=== PATIENT | female | born 1975 | race Hispanic/Latino ===

== ENCOUNTER 2018-11-24 05:46 | Day surgery (SDC) | payer MEDICAID ==
--- NOTE | 2018-11-23 17:20 | History and Physical Report ---
History of Present Illness Date of examination: 11/23/18 Chief complaint: dysfunctional uterine bleeding History of present illness: Pt i s a 43 year old female presents for surgical management of dysfunctional uterine bleeding. Pt reported palpitations this past weekend after drinking an alcoholic beverage. She denies feeling any palpitations today. Past History Past Medical History: other (Crohn's Disease; Arthritis (caused by Crohn's Disease) ) Past Surgical History: breast surgery (breast augmentation ), SECURITY SCREENER/uterine surgery (LEEP ), other (two abdominoplasties, nine surgeries to repair face after dog bite ) SECURITY SCREENER History: abnormal PAP smear Family/Genetic History: diabetes, hypertension Social history: no significant social history - Obstetrical History : 4 Para: 4 Hx # Term Pregnancies: 2 Number of Pregnancies: 2 Spontaneous Abortions: 0 Induced : 0 Number of Living Children: 2 Medications and Allergies Allergies Allergy/AdvReac Type Severity Reaction Status Date / Time No Known Allergies Allergy Unverified 11/23/18 10:02 Home Medications Medication Instructions Recorded Confirmed Last Taken Type Folic Acid [Folvite] 1 tab PO DAILY 11/23/18 11/23/18 Unknown History Montelukast [Singulair] 10 mg PO QPM 11/23/18 11/23/18 Unknown History Vit-Fe Fumar-FA [ 1 tab PO QDAY 11/23/18 11/23/18 Unknown History Vitamin] sulfaSALAzine [Azulfidine] 1,000 mg PO BID 11/23/18 11/23/18 Unknown History Active Meds: Active Medications Lactated Ringer's (Lactated Ringers) 1,000 mls @ 75 mls/hr IV DIRECT HAILEY Cefazolin Sodium (Ancef/Sterile Water 2 Gm/20 Ml) 2 gm in 20 mls @ 80 mls/hr IV PREOP NR; Protocol Review of Systems All systems: negative - Physical Exam Breasts: Positive: deferred Cardiovascular: Regular rate Lungs: Positive: Clear to auscultation Abdomen: Positive: soft, organomegaly Extremities: Positive: normal Results All other labs normal. Assessment and Plan A: Dysfunctional Uterine Bleeding Crohn's Disease Palpitations P: EKG Proceed with hysteroscopy, Myosure endometrial sampling, Novasure endometrial ablation and other indicated procedures.
[~2018-11-24 05:46] MED LIST: ANCEF/STERILE WATER 2 GM/20 ML 2 GM/20 ML SYRINGE IV NR; LACTATED RINGERS 1,000 ML IV SCH
[2018-11-24] MEDS ORDERED: NACL BACTERIOSTATIC INFILTRATI ONE (06:18)
[2018-11-24 06:56] LABS: Hematocrit 36.3 % (30.3-42.9); Hemoglobin 12.2 gm/dl (10.1-14.3); Mean Corpuscular HGB Conc 34 % (30-34); Mean Corpuscular Volume 98 fl (79-97); Platelet Count 214 K/mm3 (140-440); Red Blood Count 3.72 M/mm3 (3.65-5.03); Red Cell Distribution Width 13.2 % (13.2-15.2)
[2018-11-24] MEDS ORDERED: VERSED IV NR (07:16)
[2018-11-24] MEDS ORDERED: PEPCID IV NR (07:17)
[2018-11-24] MEDS ORDERED: SUBLIMAZE IV PRN (07:23)
[2018-11-24] MEDS ORDERED: ZOFRAN IV PRN (07:23)
[2018-11-24] MEDS ORDERED: PEPCID IV ONE (07:25)
[2018-11-24] MEDS ORDERED: SILVER NITRATE TP ONE (07:26)
[2018-11-24] MEDS ORDERED: DILAUDID IV PRN (07:32)
--- NOTE | 2018-11-24 07:32 | Anesthesia Day of Surgery ---
Anesthesia Day of Surgery - Day of Surgery Patient Examined: Yes Patient H&P Reviewed: Yes Patient is NPO: Yes
--- NOTE | 2018-11-24 07:32 | Anesthesia Consultation ---
Anesthesia Consult and Med Hx Date of service: 11/24/18 - Airway Anesthetic Teeth Evaluation: Good ROM Head & Neck: Adequate Mental/Hyoid Distance: Adequate Mallampati Class: Class II Intubation Access Assessment: Probably Good - Pulmonary Exam CTA: Yes - Cardiac Exam Cardiac Exam: RRR - Pre-Operative Health Status ASA Pre-Surgery Classification: ASA2 Proposed Anesthetic Plan: General - Pulmonary Hx Smoking: No Hx Respiratory Symptoms: No Hx Sleep Apnea: No - Cardiovascular System Hx Hypertension: No Hx Heart Attack/AMI: No Hx Angina: No (recent episode chest tightness; normal EKG.) Hx Percutaneous Transluminal Coronary Angioplasty (PTCA): No Hx Cardia Arrhythmia: No - Central Nervous System Hx Seizures: No CVA: No Hx Psychiatric Problems: No - Gastrointestinal Hx Gastroesophageal Reflux Disease: No (Hx Crohn's disease; no steroids/immunosuppresants >6months) - Endocrine Hx Renal Disease: No Hx Liver Disease: No Hx Insulin Dependent Diabetes: No Hx Non-Insulin Dependent Diabetes: No Hx Thyroid Disease: No - Other Systems Hx Alcohol Use: Yes (Occas) Hx Cancer: No Hx Obesity: No - Additional Comments Anesthesia Medical History Comments: No hx anesthetic complications.
[2018-11-24] MEDS ORDERED: SUBLIMAZE ONE (07:48)
[2018-11-24] MEDS ORDERED: ZOFRAN ONE (07:48)
[2018-11-24] MEDS ORDERED: DIPRIVAN 10 MG/ML IV ONE (07:48)
[2018-11-24] MEDS ORDERED: DECADRON ONE (07:48)
[2018-11-24] MEDS ORDERED: XYLOCAINE MPF 2% ONE (07:48)
[2018-11-24] MEDS ORDERED: TORADOL ONE (07:48)
[2018-11-24] MEDS ORDERED: NACL 0.9% IR ONE (08:00)
--- NOTE | 2018-11-24 08:24 | Operative Report ---
Operative Report Operative Report: Date of procedure: November 24, 2018 Preoperative diagnosis: 1) Dysfunctional Uterine Bleeding Postoperative diagnosis: Same Procedure: 1)Hysteroscopy 2)Myosure Endometrial Sampling 3)NovaSure Endometrial Ablation Surgeon: Chely Navarrete M.D. Findings: 1) Small anteverted mobile uterus that sounded to 9.5 cm 2) Proliferative endometrium on hysteroscopy Anesthesia: General with LMA Estimated blood loss: Minimal Specimens: endometrial curettings to pathology Drains: None Complications: None Disposition: Stable to PACU Indications for procedure: The patient is 43 year old female who presents for surgical management of dysfunctional uterine bleeding. Operation in detail: After the risks, benefits, alternatives and complications of the procedure were explained to the patient, she gave informed consent for the procedure. She was subsequently taken to the operating room and placed in the dorsal supine position with her IV noted to be running well. SCDs noted to be in place and functioning. General anesthesia was then induced without difficulty. The patient was in placed in dorsal lithotomy position and prepped and draped in normal sterile fashion. A timeout was performed. An exam under anesthesia was performed yielding a mobile anteverted uterus. The bladder was then catheterized and drained of urine. An open sided speculum was then placed into the vagina for adequate visualization of the cervix. The anterior lip of the cervix was then grasped with a tenaculum for traction. The cavity length was then noted to be 4.5 cm. At this time a hysteroscope was introduced to visualize the endometrial cavity which revealed proliferative endometrium. The Myosure device was used to obtain a targeted endometrial sample and the curettings were sent to pathology. Attention was then turned to the endometrial ablation. At this time Rizzo dilators were used to sequentially dilate the cervix to a #19. Next the disposable NovaSure device was connected to the RF controller. The NovaSure disposable device was deployed to the locked position and noted to fully extend. The device was then placed in the unlocked position. The disposable device was then inserted into the uterine cavity with traction on the tenaculum. The device was then seated per protocol. After moving the device back 0.5 cm, the device was moved superiorly and inferiorly and rotated clockwise and counterclockwise to 45. The cavity width at this time was noted to be 4.5 cm. The cervical collar was then advanced to the cervix. The cavity assessment was then initiated and passed. The ablation procedure was then initiated and the ablation time was 1 minute 32 seconds. The cervical collar was moved away from the cervix, the device was moved to the unlocked position, and the disposable NovaSure device was removed from the uterine cavity. At this time, the single-tooth tenaculum was removed from the cervix. The tenaculum puncture sites were noted to be hemostatic. All instruments were removed from the vagina atraumatically and the procedure was ended. The patient was placed into the dorsal supine position and extubated without difficulty. She was subsequently taken to the PACU in stable condition. She tolerated the procedure well. All counts were correct 2.
--- NOTE | 2018-11-24 08:29 | Short Stay Summary ---
Short Stay Documentation Date of service: 11/24/18 - History H&P: dictated Social history: no significant social history - Allergies and Medications Current Medications: Allergies No Known Allergies Allergy (Unverified 11/23/18 10:02) Home Medications Medication Instructions Recorded Confirmed Last Taken Type Folic Acid [Folvite] 1 tab PO DAILY 11/23/18 11/23/18 11/23/18 History Montelukast [Singulair] 10 mg PO QPM 11/23/18 11/23/18 11/23/18 History Vit-Fe Fumar-FA [ 1 tab PO QDAY 11/23/18 11/23/18 11/23/18 History Vitamin] sulfaSALAzine [Azulfidine] 1,000 mg PO BID 11/23/18 11/23/18 11/23/18 History Active Medications Famotidine (Pepcid) 20 mg IV PREOP NR Stop: 11/24/18 20:00 Last Admin: 11/24/18 07:20 Dose: 20 mg Documented by: Fentanyl (Sublimaze) 50 mcg IV Q5MIN PRN PRN Reason: Pain , Severe (7-10) Stop: 11/24/18 20:00 Hydromorphone HCl (Dilaudid) 0.5 mg IV Q10MIN PRN PRN Reason: Pain , Severe (7-10) Stop: 11/24/18 20:00 Lactated Ringer's (Lactated Ringers) 1,000 mls @ 75 mls/hr IV DIRECT HAILEY Last Admin: 11/24/18 06:40 Dose: 75 mls/hr Documented by: Cefazolin Sodium (Ancef/Sterile Water 2 Gm/20 Ml) 2 gm in 20 mls @ 80 mls/hr IV PREOP NR; Protocol Stop: 11/24/22 04:59 Midazolam HCl (Versed) 2 mg IV ONCE NR Stop: 11/24/18 20:00 Last Admin: 11/24/18 07:25 Dose: 1 mg Documented by: Ondansetron HCl (Zofran) 4 mg IV ONCE PRN PRN Reason: Nausea And Vomiting Stop: 11/24/18 13:00 - Physical exam Breasts: deferred - Brief post op/procedure progress note Date of procedure: 11/24/18 Pre-op diagnosis: Dysfunctional Uterine Bleeding Post-op diagnosis: same Procedure: 1) Hysteroscopy 2) Myosure endometrial sampling 3) Novasure endometrial ablation Anesthesia: GETA (LMA ) Findings: 1) Small anteverted uterus that sounded to 9.5 cm 2) Proliferative endometrium on hysteroscopy Surgeon: JEFE CAROLINA Estimated blood loss: minimal Pathology: list (endometrial curettings) Specimen disposition: to lab Condition: stable - Hospital course Hospital course: The patient underwent hysteroscopy, Myosure endometrial sampling and Novasure endometrial ablation which she tolerated well. She was observed in the PACU until she met discharge criteria. She will follow up in the office in 2 weeks. - Disposition Condition at discharge: Stable Disposition: DC- TO HOME OR SELFCARE - Discharge Diagnoses (1) DUB (dysfunctional uterine bleeding) Status: Acute (2) Crohns disease Status: Acute Qualifiers: Gastrointestinal tract location: unspecified location Digestive disease complication type: unspecified complication Qualified Code(s): K50.919 - Crohn's disease, unspecified, with unspecified complications Short Stay Discharge Plan Activity: other (Nothing in vagina and no tub baths x 4 wks ) Weight Bearing Status: Full Weight Bearing Diet: regular Follow up with: DONALDO PIZANO MD [Primary Care Provider] - 7 Days JEFE CAROLINA MD [Staff Physician] - 12/08/18 (Please call the office to schedule a postoperative appt ) Prescriptions: Docusate Sodium [Colace] 100 mg PO BID PRN #60 capsule PRN Reason: constipation Ibuprofen [Motrin] 800 mg PO Q8HR PRN #30 tablet PRN Reason: Pain, Moderate (4-6) oxyCODONE /ACETAMINOPHEN [Percocet 5/325] 1 tab PO Q6HR PRN #30 tablet PRN Reason: Pain , Severe (7-10)
[2018-11-24] MEDS ORDERED: PERCOCET 5/325 PO PRN (08:59)
[2018-11-24 09:20] VITALS: BP 110/75
--- NOTE | 2018-11-24 10:50 | Post Anesthesia Evaluation ---
- Post Anesthesia Evaluation Patient Participated: Yes Airway Patent: Yes Stable Respiratory Function: Yes Nausea/Vomiting: No Temp > 96.8F: Yes Pain Manageable: Yes Adequeate Hydration: Yes Anesthesia Complications: No
== END 2018-11-24 09:39 | disposition home or self-care (01) ==
LOC: OR 05:46 → EDBD 10:30
PROVIDERS: ATTEND Obstetrics & Gynecology
DX: N85.8 Other specified noninflammatory disorders of uterus (principal); N93.8 Other specified abnormal uterine and vaginal bleeding; K50.90 Crohn's disease, unspecified, without complications; K21.9 Gastro-esophageal reflux disease without esophagitis; M19.90 Unspecified osteoarthritis, unspecified site; Z72.89 Other problems related to lifestyle; Z98.890 Other specified postprocedural states; Z79.899 Other long term (current) drug therapy; Z98.82 Breast implant status; Z86.2 Personal history of diseases of the blood and blood-forming organs and certain disorders involving the immune mechanism
CPT/HCPCS: 36415; 58563; 84703; 85027; 86850; 86900; 86901; 88305; 93005; 93010; A4217; C1782; J0690; J1100; J1885; J2250; J2405; J2704; J3010; J7120

== ENCOUNTER 2019-05-25 06:56 | Observation (INO) | payer MEDICAID ==
[2019-05-23 12:16] LABS: Basophils % (Auto) 0.9 % (0.0-1.8); Eosinophils # (Auto) 0.2 K/mm3 (0.0-0.4); Hemoglobin 11.9 gm/dl (10.1-14.3); Lymphocytes # (Auto) 1.4 K/mm3 (1.2-5.4); Lymphocytes % (Auto) 29.7 % (13.4-35.0); Mean Corpuscular HGB Conc 34 % (30-34); Mean Corpuscular Volume 100 fl (79-97); Monocytes # (Auto) 0.4 K/mm3 (0.0-0.8); Monocytes % (Auto) 7.7 % (0.0-7.3); Platelet Count 213 K/mm3 (140-440); Red Blood Count 3.52 M/mm3 (3.65-5.03)
[2019-05-23 12:46] LABS: Alanine Aminotransferase 19 units/L (7-56); Albumin 4.8 g/dL (3.9-5); BUN/Creatinine Ratio 21; Blood Urea Nitrogen 15 mg/dL (7-17); Calcium 8.8 mg/dL (8.4-10.2); Hemolysis Index 10
--- NOTE | 2019-05-23 12:54 | Anesthesia Consultation ---
Anesthesia Consult and Med Hx Date of service: 05/25/19 - Airway Anesthetic Teeth Evaluation: Good ROM Head & Neck: Adequate Mental/Hyoid Distance: Adequate Mallampati Class: Class II Intubation Access Assessment: Good - Pulmonary Exam CTA: Yes - Cardiac Exam Cardiac Exam: No Murmur - Pre-Operative Health Status ASA Pre-Surgery Classification: ASA2 Proposed Anesthetic Plan: General Nerve Block: TAP - Pulmonary Hx Asthma: Yes (exercise induced) Hx Respiratory Symptoms: No - Cardiovascular System Hx Cardia Arrhythmia: No - Central Nervous System Hx Psychiatric Problems: No - Gastrointestinal Hx Gastroesophageal Reflux Disease: No (Hx Crohn's disease; no steroids/immunosuppresants >6months) - Endocrine Hx Insulin Dependent Diabetes: No Hx Non-Insulin Dependent Diabetes: No Hx Thyroid Disease: No - Other Systems Hx Alcohol Use: Yes (Occas) Hx Cancer: No
[~2019-05-25 06:56] MED LIST changes: -ANCEF/STERILE WATER 2 GM/20 ML 2 GM/20 ML SYRINGE IV NR; +CELECOXIB 200 MG CAP PO NR; +FAMOTIDINE 20 MG TAB PO NR; +GABAPENTIN 300 MG CAP PO NR; +MIDAZOLAM 2 MG/2 ML INJ IV NR; +fentaNYL 100 MCG/2 ML INJ IV PRN
--- NOTE | 2019-05-25 07:15 | History and Physical Report ---
History of Present Illness Date of examination: 05/25/19 Date of admission: 05/25/2019 Chief complaint: Dysfunctional uterine bleeding History of present illness: 43-year-old with a history of dysfunctional uterine bleeding. The patient underwent a hysteroscopy and NovaSure were but had return of her abnormal bleeding despite the surgical procedure. The patient's ultrasound demonstrated an unremarkable uterus. She has elected to undergo definitive alex gical management. Past History Past Medical History: other (Crohn's disease; arthritis; HPV) Past Surgical History: other (breast augmentation; endometrial ablation; LEEP; abdominoplasty) Social history: - Obstetrical History : 4 Para: 4 Hx # Term Pregnancies: 2 Number of Pregnancies: 2 Spontaneous Abortions: 0 Induced : 0 Number of Living Children: 4 Medications and Allergies Allergies Allergy/AdvReac Type Severity Reaction Status Date / Time No Known Allergies Allergy Unverified 05/16/19 16:53 Home Medications Medication Instructions Recorded Confirmed Last Taken Type Folic Acid [Folvite] 1 tab PO DAILY 11/23/18 05/16/19 11/23/18 History Montelukast [Singulair] 10 mg PO QPM 11/23/18 05/16/19 11/23/18 History Vit-Fe Fumar-FA [ 1 tab PO QDAY 11/23/18 05/16/19 11/23/18 H istory Vitamin] sulfaSALAzine [Azulfidine] 1,000 mg PO BID 11/23/18 05/16/19 11/23/18 History Active Meds: Active Medications Celecoxib (Celebrex) 200 mg PO PREOP NR Stop: 05/25/19 23:59 Famotidine (Pepcid) 20 mg PO PREOP NR Stop: 05/25/19 23:59 Fentanyl (Sublimaze) 100 mcg IV ONCE PRN PRN Reason: sedation for nerve block Gabapentin (Gabapentin) 600 mg PO PREOP NR Stop: 05/25/19 23:59 Lactated Ringer's (Lactated Ringers) 1,000 mls @ 100 mls/hr IV DIRECT HAILEY Midazolam HCl (Versed) 2 mg IV PREOP NR Stop: 05/25/19 23:59 Review of Systems All systems: negative Genitourinary: vaginal bleeding - Vital Signs Vital signs: Vital Signs Temp Pulse Resp BP Pulse Ox 98.5 F 76 18 106/69 98 05/23/19 11:30 05/23/19 11:30 05/23/19 11:30 05/23/19 11:30 05/23/19 11:30 Temp Pulse Resp BP Pulse Ox 98.5 F 76 18 106/69 98 05/23/19 11:30 05/23/19 11:30 05/23/19 11:30 05/23/19 11:30 05/23/19 11:30 - Physical Exam Breasts: Positive: deferred Cardiovascular: Regular rate Lungs: Positive: Clear to auscultation Results Result Diagrams: 05/23/19 11:40 05/23/19 11:40 All other labs normal. Assessment and Plan - Patient Problems (1) DUB (dysfunctional uterine bleeding) Current Visit: No Status: Acute Plan to address problem: Patient will undergo a robotic hysterectomy and bilateral salpingectomy
[2019-05-25] MEDS ORDERED: ceFAZolin/Water 2 GM/20 ML 2 GM/20 ML SYRINGE IV NR (08:00)
[2019-05-25] MEDS ORDERED: dexAMETHasone 4 MG/ML VIAL ONE (09:16)
[2019-05-25] MEDS ORDERED: BUPIVACAINE-EPINEPHRINE/PF 0.25%-1:200,000 (30 ML) VIAL INFILTRATI ONE (09:16)
--- NOTE | 2019-05-25 09:16 | Anesthesia Day of Surgery ---
Anesthesia Day of Surgery - Day of Surgery Patient Examined: Yes Patient H&P Reviewed: Yes Patient is NPO: Yes
[2019-05-25] MEDS ORDERED: PROPOFOL 200 MG/20 ML VIAL IV ONE (09:57)
[2019-05-25] MEDS ORDERED: ROCURONIUM 50 MG/5 ML INJ IV ONE (09:57)
[2019-05-25] MEDS ORDERED: dexAMETHasone 20 MG/5 ML VIAL ONE (09:57)
[2019-05-25] MEDS ORDERED: LIDOCAINE MPF (2%) 20 MG/1 ML VIAL 5 ML ONE (09:57)
[2019-05-25] MEDS ORDERED: KETOROLAC 30 MG/1 ML INJ ONE (09:57)
[2019-05-25] MEDS ORDERED: ONDANSETRON 4 MG/2 ML INJ ONE (09:57)
[2019-05-25] MEDS ORDERED: fentaNYL 100 MCG/2 ML INJ ONE (09:57)
[2019-05-25] MEDS ORDERED: HYDROmorphone 1 MG/1 ML INJ ONE (09:57)
[2019-05-25] MEDS ORDERED: NEOMY 40 MG/POLYMYXIN B 200,000 UNITS/ML (GU) AMPULE IR ONE ×2 (10:53→12:03)
[2019-05-25] MEDS ORDERED: SODIUM CHLORIDE 0.9% IRRIG SOLN 2000 ML IR ONE (12:03)
[2019-05-25] MEDS ORDERED: SODIUM CHLORIDE 0.9% IRR 1,500 ML BOTTLE IR ONE (12:03)
[2019-05-25] MEDS ORDERED: GLYCOPYRROLATE 0.4 MG/2 ML INJ ONE (12:39)
[2019-05-25] MEDS ORDERED: IBUPROFEN 800 MG TAB PO PRN (12:43)
[2019-05-25] MEDS ORDERED: NEOSTIGMINE 10MG/10 ML INJ MDV ONE (12:43)
[2019-05-25] MEDS ORDERED: ACETAMINOPHEN 325 MG TAB PO PRN (12:43)
[2019-05-25] MEDS ORDERED: ONDANSETRON 4 MG/2 ML INJ IV PRN (12:43)
[2019-05-25] MEDS ORDERED: ZOLPIDEM 5 MG TAB PO PRN (12:43)
[2019-05-25] MEDS ORDERED: MORPHINE 4 MG/1 ML INJ IV PRN (12:43)
--- NOTE | 2019-05-25 12:43 | Operative Report ---
Operative Report Operative Report: Date of surgery: 05/25/2019 Preoperative diagnoses: Dysfunctional uterine bleeding Postoperative diagnoses: Same as above Procedure: Robotic hysterectomy; Bilateral salpingectomy Surgeon: Lolita Cleary M.D. Equity Manager: Ester Navarrete Anesthesia: Gen. endotracheal anesthesia Estimated blood loss: 50 mL Pathology: Uterus, cervix, bilateral tubes Indication: 43-year-old with a history of dysfunctional uterine bleeding. The patient had previously undergone an endometrial ablation without improvement of her symptoms. The patient elected to undergo definitive surgical management. Procedure: The patient was taken to the operating room and given general endotracheal anesthesia without complication. She is prepped and draped in a normal sterile fashion. A bivalve speculum was placed in the patient's vagina and a single- tooth tenaculum placed on the anterior lip of the cervix. The uterus was sounded with the uterine sound. A [employer] uterine manipulator was placed in the bivalve speculum was then removed. Attention was then turned to the patient's abdomen where a millimeter supra umbilical skin incision was then made. A Veress needle was placed and peritoneal entry was verified water-filled syringe. Insufflation of the peritoneal cavity was performed with CO2 gas. The 12 mm trocar was then placed under direct visualization. An additional 8 mm trocar was placed on the patient's left and right lateral side just opposite of the supraumbilical trocar. An additional 5 mm right lateral trocar was then placed as the accessory port. The supraumbilical 12 mm fascial incision of the trocar site was closed using the Michael Herman device and 0 vicryl. The patient was then placed in steep Trendelenburg. The da Jonathan robot was then engaged. Gen. survey revealed a normal size uterus with contour and shape. Normal tubes and ovaries bilaterally. A fenestrated forcep was placed in arm 2 and a vessel sealer was placed in arm 1. The surgeon then transferred to the surgical console. The mesosalpinx was then isolated on the right. The vessel sealer was used to coagulate the mesosalpinx which was then transected. The tube was transected from the ovary. The tubo-ovarian ligament was then coagulated and transected. The round ligament was then coagulated and transected also. The vesicouterine peritoneum was then entered from the patient's right side. The uterine vessels were then coagulated with the vessel sealer. The vessels were then transected . Attention was then turned to the patient's left side where the tubo-ovarian ligament and mesosalpinx were again isolated coagulated and transected. The vesical peritoneum was then entered from the left and joined in the midline. Peritoneum was reflected off of the lower uterine segment. Uterine vessels were then coagulated and then transected. The blood supply to the uterus was adequately contained, a posterior colpotomy was made. The V care ring was visualized. Posterior colpotomy was created with the monopolar scissors. The incision was continued circumferentially until anterior colpotomy was made. The cervix and uterus were amputated from the vaginal cuff. The uterus was then removed along with the tubes bilaterally through the vagina and a warm laparotomy sponge was placed and maintain the pneumoperitoneum. The vaginal cuff was then closed in a running fashion with V lock suture. Irrigation of the pelvis was performed. Hemoblast was applied to the incision. The skin was then reapproximated with 4-0 Monocryl. The tissue was sent to pathology which included the cervix, tubes, and uterus. The patient was then successfully extubated. She was then taken to the recovery room in stable condition. All sponge laps and needle counts were correct x2.
[2019-05-25] MEDS ORDERED: GABAPENTIN 300 MG CAP PO NR (13:00)
[2019-05-25] MEDS ORDERED: MIDAZOLAM 2 MG/2 ML INJ IV NR (13:00)
[2019-05-25] MEDS ORDERED: FAMOTIDINE 20 MG TAB PO NR (13:00)
[2019-05-25] MEDS ORDERED: D5W/LACTATED RINGERS 1,000 ML IV SCH (13:00)
[2019-05-25] MEDS ORDERED: CELECOXIB 200 MG CAP PO NR (13:00)
[2019-05-25] MEDS ORDERED: LACTATED RINGERS 1,000 ML IV SCH (13:00)
[2019-05-25] MEDS: HYDROmorphone 1 MG/1 ML INJ IV PRN ×2 (13:33→13:50)
[2019-05-25] MEDS: KETOROLAC 30 MG/1 ML INJ IV SCH ×2 (17:10→22:41)
[2019-05-26] MEDS: KETOROLAC 30 MG/1 ML INJ IV SCH (01:10)
[2019-05-26] MEDS: oxyCODONE /ACETAMINOPHEN 5-325MG TAB PO PRN ×4 (01:23→13:27)
[2019-05-26 05:19] LABS: Hematocrit 31.7 % (30.3-42.9); Hemoglobin 10.6 gm/dl (10.1-14.3)
--- NOTE | 2019-05-26 08:38 | Progress Note ---
Assessment and Plan - Patient Problems (1) DUB (dysfunctional uterine bleeding) Current Visit: No Status: Acute Plan to address problem: patient doing well discharge home Subjective - Subjective Date of service: 05/26/19 Interval history: Details of surgery discussed with patient. Patient reports pain is controlled. Tolerating clear diet. Patient reports: appetite normal, voiding normally, pain well controlled Objective - Vital Signs Latest vital signs: Vital Signs Temp Pulse Resp BP BP Pulse Ox 05/26/19 05:49 18 05/26/19 04:00 98.7 F 81 16 113/70 05/26/19 00:00 98.6 F 66 18 111/62 05/25/19 22:41 18 05/25/19 20:30 18 05/25/19 19:30 98.7 F 68 16 114/74 05/25/19 16:50 97.6 F 63 20 108/72 05/25/19 14:30 97.5 F L 10 L 96/62 95 05/25/19 14:09 98.1 F 54 L 15 102/62 99 05/25/19 13:55 58 L 19 105/64 99 05/25/19 13:50 12 05/25/19 13:40 54 L 11 L 107/67 100 05/25/19 13:33 12 05/25/19 13:25 52 L 11 L 114/75 100 05/25/19 13:20 54 L 11 L 121/77 100 05/25/19 13:15 54 L 13 116/78 100 05/25/19 13:09 97.8 F 57 L 12 113/75 100 05/25/19 11:10 16 05/25/19 10:35 94 H 14 129/72 98 05/25/19 10:29 95 H 14 126/76 100 05/25/19 10:23 88 11 L 122/79 100 05/25/19 10:19 84 12 109/71 100 05/25/19 10:14 78 23 116/83 100 05/25/19 10:10 16 05/25/19 10:09 66 11 L 114/81 100 05/25/19 08:50 16 Intake and Output 05/25/19 05/26/19 05/26/19 22:59 06:59 14:59 Intake Total 510 300 Output Total 150 1000 Balance 360 -700 Intake: Oral 210 Intake, Free Water 300 300 Output: Urine 150 1000 Indwelling Catheter 150 1000 Other: Total, Intake Amount 120 Total, Output Amount 150 1000 Voiding Method Indwelling Catheter - Exam Breasts: Present: deferred Cardiovascular: Present: Regular rate Lungs: Present: Clear to auscultation Abdomen: Present: normal appearance
--- NOTE | 2019-05-26 08:40 | Discharge Summary ---
Providers - Providers Date of Admission: 05/25/19 12:44 Date of discharge: 05/26/19 Attending physician: CANDIE MONZON Primary care physician: DONALDO PIZANO MD Hospitalization Reason for admission: other (dysfunctional uterine bleeding) Procedure: other (robotic hysterectomy) Incision: normal Discharge diagnosis: other (DUB) Hospital course: Patient was admitted the day of surgery and underwent a robotic hysterectomy. See op note. Postop uncomplicated Condition at discharge: Good Disposition: DC-01 TO HOME OR SELFCARE - Discharge Diagnoses (1) DUB (dysfunctional uterine bleeding) Status: Acute Plan - Discharge Medications Prescriptions: Ibuprofen [Motrin] 800 mg PO Q8HR PRN #60 tablet PRN Reason: Pain, Mild (1-3) oxyCODONE /ACETAMINOPHEN [Percocet 5/325] 1 tab PO Q6HR PRN #30 tablet PRN Reason: Pain - Provider Discharge Summary Activity: no sex for 6 weeks, no heavy lifting 4 weeks, no strenuous exercise Diet: routine Instructions: routine Additional instructions: [] Smoking cessation referral if applicable(refer to patient education folder for contact #) [] Refer to [facility] Booklet Call your doctor immediately for: * Fever > 100.5 * Heavy vaginal bleeding ( >1 pad per hour) * Severe persistent headache * Shortness of breath * Reddened, hot, painful area to leg or breast * Drainage or odor from incision. * Keep incision clean and dry at all times and follow doctor's instructions regarding bathing/showering schedule postop visit in 4 weeks - Follow up plan
[2019-05-26 16:07] VITALS: BP 107/73
== END 2019-05-26 15:54 | disposition home or self-care (01) ==
LOC: OR 06:56 → OB 12:44
PROVIDERS: ADMIT Obstetrics & Gynecology; ATTEND Obstetrics & Gynecology
DX: N93.8 Other specified abnormal uterine and vaginal bleeding (principal); M19.90 Unspecified osteoarthritis, unspecified site; K50.90 Crohn's disease, unspecified, without complications; Z98.890 Other specified postprocedural states
CPT/HCPCS: 36415; 58571; 64450; 80053; 84703; 85014; 85018; 85025; 86850; 86900; 86901; 88307; 96374; 96375; 96376; A4217; G0378; J0690; J1100; J1170; J1885; J2250; J2270; J2405; J2704; J2710; J3010; J7120; J7121; S2900